=== PATIENT | female | born 1960 ===

== ENCOUNTER 2025-04-10 11:29 | Outpatient (AMB) | payer BC, SELFPAY ==
--- OUTSIDE RECORDS SUMMARY | 2025-04-10 13:02 | XMS_ITS | Clinical Summary ---
Author Organization [facility] it Address [address] [place] [address] Care Team Providers Care Yeast Cake Cutter Name Role Phone Niall Matamoros MD Primary Care Provider [phone] Social History Tobacco Use Types Packs/Day Years Used Date Smoking Tobacco: Never Assessed Comments Unknown Sex and Gender Information Value Date Recorded Sex Assigned at Not on file Legal Sex Female 2:36 AM EST Gender Identity Not on file Sexual Orientation Not on file Plan of Treatment Health Maintenance Due Date Last Done Comments Breast Cancer Screening 1960 DTaP,Tdap,and Td Vaccines (1 - Tdap) 1979 Cervical Cancer Screening: P ap Smear 1981 Pneumococcal Vaccine: 50+ Ye ars (1 of 1 - PCV) 2010 Zoster Vaccines (1 of 2) 2010 Colorectal Cancer Screening: Colonoscopy 07/26/2022 Hepatitis C Screening 07/26/2022 Osteoporosis Screening (Bone Density Screening) 07/26/2022 Social Influencers of Health Screening 07/26/2022 COVID-19 Vaccine (1 - 2023-2 5 season) 2024 Depression Screening 08/23/2024 Falls Risk Assessment 2025 Influenza Vaccine (#1) 2025 RSV Immunization Adult Patie nts (1 - 1-dose 75+ series) 2035 HIB Vaccines Aged Out No longer eligi ble based on patient's age to complete this topic HPV Vaccines Aged Out No longer eligi ble based on patient's age to complete this topic Hepatitis A Vaccines Aged Out No long er eligible based on patient's age to complete this topic Hepatitis B Vaccines Aged Out No long er eligible based on patient's age to complete this topic IPV Vaccines Aged Out No longer eligi ble based on patient's age to complete this topic MMR Vaccines Aged Out No longer eligi ble based on patient's age to complete this topic Meningococcal ACWY Vaccine Aged Out N o longer eligible based on patient's age to complete this topic Meningococcal B Vaccine Aged Out No l onger eligible based on patient's age to complete this topic RSV Immunization Patients Un van 20 months Aged Out No longer eligible b ased on patient's age to complete this topic Varicella Vaccines Aged Out No longer eligible based on patient's age to complete this topic Care Teams Yeast Cake Cutter Relationship Specialty Start Date End Date Niall Matamoros MD [address] [place] [address] PCP - General 01/30/09
== END 2025-04-10 11:30 | disposition home or self-care (01) ==
LOC: HO.HMGAL 11:29
PROVIDERS: PCP Internal Medicine; Visit Provider Registered Nurse Emergency
DX: J30.89 Other allergic rhinitis (principal)
CPT/HCPCS: 95117; 95165

== ENCOUNTER 2025-05-14 08:26 | Outpatient (AMB) | payer MEDICARE, BC, SELFPAY ==
--- OUTSIDE RECORDS SUMMARY | 2025-05-14 09:38 | XMS_ITS | Clinical Summary ---
Author Organization [facility] ity Address [address] [place] [address] Care Team Providers Care Seeing Eye Dog Teacher Name Role Phone Niall Matamoros MD Primary Care Provider [phone] Social History Tobacco Use Types Packs/Day Years [...] 07/26/2022 Social Influencers of Health Screening 07/26/2022 Depression Screening 08/23/2024 Falls Risk Assessment 2025 COVID-19 Vaccine ( - 2023-2 5 season) 2025 Influenza Vaccine (#1) 2025 RSV Immunization [...] age to complete this topic Care Teams Seeing Eye Dog Teacher Relationship Specialty Start Date End Date Niall Matamoros MD [address] [place] [address] PCP - General 01/30/09
== END 2025-05-14 08:38 | disposition home or self-care (01) ==
LOC: HO.HMGAL 08:26
PROVIDERS: PCP Internal Medicine; Visit Provider Registered Nurse Emergency
DX: J30.89 Other allergic rhinitis (principal)
CPT/HCPCS: 95117; 95165

== ENCOUNTER 2025-06-13 08:51 | Outpatient (AMB) | payer MEDICARE, BC, SELFPAY ==
--- OUTSIDE RECORDS SUMMARY | 2025-06-13 09:33 | XMS_ITS | Clinical Summary ---
Author Organization [facility] it Address [address] [place] [address] Care Team Providers Care Wardrobe Supervisor Name Role Phone Niall Matamoros MD Primary Care Provider [phone] Social History Tobacco Use Types Packs/Day Years Used Date Smoking Tobacco: Never Assessed Comments Unknown Sex and Gender Information Value Date Recorded Sex Assigned at Not on file Legal Sex Female 2:36 AM EST Gender Identity Not on file Sexual Orientation Not on file Plan of Treatment Health Maintenance Due Date Last Done Comments Breast Cancer Screening 1960 Colorectal Cancer Screening: Colonoscopy 1960 DTaP,Tdap,and Td Vaccines (1 - Tdap) 1979 Cervical Cancer Screening: P ap Smear 1981 Pneumococcal Vaccine: 50+ Ye ars (1 of 1 - PCV) 2010 Zoster Vaccines (1 of 2) 2010 Hepatitis C Screening 07/26/2022 Osteoporosis Screening (Bone Density Screening) 07/26/2022 Social Influencers of Health Screening 07/26/2022 Depression Screening 08/23/2024 Falls Risk Assessment 2025 COVID-19 Vaccine (1 - 2023-2 5 season) 2025 Influenza Vaccine [...] age to complete this topic Care Teams Wardrobe Supervisor Relationship Specialty Start Date End Date Niall Matamoros MD [address] [place] [address] PCP - General 01/30/09
== END 2025-06-13 08:52 | disposition home or self-care (01) ==
LOC: HO.HMGAL 08:51
PROVIDERS: PCP Internal Medicine; Visit Provider Registered Nurse Emergency
DX: J30.89 Other allergic rhinitis (principal)
CPT/HCPCS: 95117; 95165

== ENCOUNTER 2025-07-11 08:29 | Outpatient (AMB) | payer MEDICARE, BC, SELFPAY ==
--- OUTSIDE RECORDS SUMMARY | 2025-07-11 16:15 | XMS_ITS | Clinical Summary ---
[facility] Organization [facility] Address [address] [place] [address] Care Team Providers Care Auto Technician Name Role Phone Niall Matamoros MD Primary Care Provider [phone] Social History Tobacco Use Types Packs/Day Years [...] Risk Assessment 2025 COVID-19 Vaccine (1 - 2024-2 6 season) 2025 Influenza Vaccine (#1) 2025 RSV [...] age to complete this topic Care Teams Auto Technician Relationship Specialty Start Date End Date Niall Matamoros MD [address] [place] [address] PCP - General 01/30/09
== END 2025-07-11 08:30 | disposition home or self-care (01) ==
LOC: HO.HMGAL 08:29
PROVIDERS: PCP Internal Medicine; Visit Provider Registered Nurse Emergency
DX: J30.89 Other allergic rhinitis (principal)
CPT/HCPCS: 95117; 95165

== ENCOUNTER 2025-08-08 09:01 | Outpatient (AMB) | payer MEDICARE, BC, SELFPAY ==
--- OUTSIDE RECORDS SUMMARY | 2025-08-08 09:46 | XMS_ITS | Clinical Summary ---
[facility] Address [address] [place] [address] Care Team Providers Care Home Theater Specialist Name Role Phone Niall Matamoros MD Primary Care Provider [phone] Social History Tobacco Use Types Packs/Day Years [...] age to complete this topic Care Teams Home Theater Specialist Relationship Specialty Start Date End Date Niall Matamoros MD [address] [place] [address] PCP - General 01/30/09
== END 2025-08-08 09:01 | disposition home or self-care (01) ==
LOC: HO.HMGAL 09:01
PROVIDERS: PCP Internal Medicine; Visit Provider Registered Nurse Emergency
DX: J30.89 Other allergic rhinitis (principal)
CPT/HCPCS: 95117; 95165